=== PATIENT | female | born 1965 | race Asian ===

== ENCOUNTER 2018-08-11 12:31 | Day surgery (SDC) | payer OTHER, SELFPAY ==
[2018-08-11 13:00] VITALS: BP 101/69; PULSE 73; RESP 20; TEMP 36.7; O2SAT 98; BMI 31.1
[2018-08-11] MEDS: SODIUM CHLORIDE 0.9% 1,000 ML 100 ML IV (13:02)
--- NOTE | 2018-08-11 15:02 | PM.HP.1 ---
History of Present Illness Date Patient Seen: 08/11/18 Time Patient Seen: 15:02 Chief complaint: 36143 Colonoscopy Narrative: Wonderful 53-year-old lady here for a screening colonoscopy. She denies ever having had a colonoscopy before. She denies any new problems or symptoms related to the function of her GI tract. She reports she needs a colonoscopy as per the health maintenance program. Patient History Social History household members: spouse Family & Social History Social History: household members spouse Meds Home Medications Medication Instructions Recorded Confirmed Type calcium carbonate [Calcium 500] 1,000 mg PO QAM 08/11/18 08/11/18 History cholecalciferol (vitamin D3) 2,000 unit PO DAILY 08/11/18 08/11/18 History [Vitamin D3] folic acid 1 mg PO DAILY 08/11/18 08/11/18 History methotrexate sodium 5 mg PO QWEEK 08/11/18 08/11/18 History Allergies Allergy/AdvReac Type Severity Reaction Status Date / Time No Known Drug Allergies Allergy Verified 08/11/18 13:03 Review of Systems Review of Systems All systems reviewed & are unremarkable except as noted in HPI and below Exam Vital Signs (past 8 hours): - 08/11/18 13:00 Temperature 98.1 F Pulse Rate 73 Respiratory Rate 20 Blood Pressure 101/69 Pulse Oximetry 98 Oxygen Delivery Method Room Air Narrative Exam Narrative: Very pleasant lady in no obvious distress HEENT: Normocephalic atraumatic, pupils equal round reactive to light accommodation with anicteric sclera Lungs: Clear to auscultation bilaterally Heart: Regular rate and rhythm Abdomen: Soft, nontender, active bowel sounds Extremities: Warm well perfused Assessment & Plan Assessment & Plan narrative: Very pleasant lady with a new diagnosis of diabetes on metformin. She presents today for her 1st screening colonoscopy. We discussed the risks and benefits of the procedure and she has expressed a desire to complete it today.
[2018-08-11] MEDS: fentaNYL 250 MCG/5 ML INJ IV (15:23)
[2018-08-11] MEDS: MIDAZOLAM 5 MG/5 ML VIAL IV (15:24)
--- NOTE | 2018-08-11 15:26 | PM.OP.1 ---
Operative Date/Time/Diagnoses Date of procedure: 08/11/18 Time of procedure: 15:26 Pre-op diagnosis: Screening Post-op diagnosis: same Procedure & Clinicians Procedure: Colonoscopy to the cecum Same procedure as scheduled: Yes Indications: No prior colonoscopy Surgeon: Martina Molina Anesthesia Type: Sedation (Versed 5 mg; fentanyl 200 micro g) Operative Notes Findings: 1. Excellent prep 2. No polyps or mass lesions 3. No AV malformations 4. Very minimal diverticulosis with just a couple of very small pockets in the sigmoid region 5. Grade 1 internal hemorrhoids Closure Type: not applicable Specimen(s): none sent Procedure in detail: After obtaining informed consent, the patient was brought to the GI suite and placed in the left lateral decubitus position on the examination table. After placement of appropriate monitors, the patient was given incremental doses of Versed and Fentanyl until an appropriate level of sedation was achieved. A time out was held per SCOAP protocol. A digital rectal examination was performed and did not reveal any masses or obstructing lesions. The colonoscope was gently passed into the patient's anus and the entire colon navigated to the level of the cecum with minimal difficulty. Once in the cecum, the scope was withdrawn being sure to go before and beyond all mucosal folds and prominences and get an excellent examination. The findings are noted above. At the level of the rectal vault, the scope was retroflexed and the internal anal canal was examined. The scope was straightened and air aspirated from the colon. The instrument was removed from the patient's body and the procedure was concluded. The patient was allowed to awaken from sedation without difficulty and taken to the post-anesthesia care unit in good condition. Total sedation time was 23 minutes Total withdrawal time was 12 minutes Complications: none Condition: stable Disposition: PACU Plan for aftercare: 1. Discharge to home 2. Plan for next colonoscopy in 10 years or as clinically indicated
[2018-08-11 15:30] VITALS: BP 94/57; PULSE 79; RESP 13; TEMP 36.5; O2SAT 96
[2018-08-11 15:35] VITALS: BP 97/59; PULSE 77; RESP 14; O2SAT 96
[2018-08-11 15:40] VITALS: BP 98/58; PULSE 72; RESP 14; O2SAT 96
[2018-08-11 15:45] VITALS: BP 101/58; PULSE 71; RESP 12; O2SAT 96
[2018-08-11 15:55] VITALS: BP 100/65; PULSE 60; RESP 18; TEMP 36.7; O2SAT 98
== END 2018-08-11 16:15 | disposition home or self-care (01) ==
PROVIDERS: PCP General Practice; Visit Provider Surgery
PROC: 0DJD8ZZ Inspection of Lower Intestinal Tract, Via Natural or Artificial Opening Endoscopic (ICD-10-PCS; CPT 45378; principal; 2018-08-11 14:00)
DX: Z12.11 Encounter for screening for malignant neoplasm of colon (principal); K57.30 Diverticulosis of large intestine without perforation or abscess without bleeding; K64.0 First degree hemorrhoids; E11.9 Type 2 diabetes mellitus without complications; Z79.84 Long term (current) use of oral hypoglycemic drugs
CPT/HCPCS: 45378; 99152; J2250; J3010

== ENCOUNTER → 2019-07-09 13:12 | Outpatient (CLI) | payer OTHER, SELFPAY | PROVIDERS: PCP General Practice; Referring Provider Internal Medicine Rheumatology; Visit Provider Internal Medicine Rheumatology | DX: M85.851 Other specified disorders of bone density and structure, right thigh (principal); Z78.0 Asymptomatic menopausal state; E07.9 Disorder of thyroid, unspecified; M05.79 Rheumatoid arthritis with rheumatoid factor of multiple sites without organ or systems involvement; M54.5 Low back pain; Z79.899 Other long term (current) drug therapy | CPT/HCPCS: 77080 ==

== ENCOUNTER → 2020-09-04 10:12 | Outpatient (CLI) | payer OTHER, SELFPAY | PROVIDERS: PCP General Practice; Referring Provider Internal Medicine Rheumatology; Visit Provider Internal Medicine Rheumatology | DX: M85.851 Other specified disorders of bone density and structure, right thigh (principal); E07.9 Disorder of thyroid, unspecified; M06.9 Rheumatoid arthritis, unspecified; Z78.0 Asymptomatic menopausal state | CPT/HCPCS: 77080 ==

== ENCOUNTER → 2023-11-24 10:48 | Outpatient (CLI) | payer OTHER, SELFPAY ==
--- NOTE | 2023-11-24 | DI.RAD.S_ITS ---
PROCEDURE: XR DEXA AXIAL SKELETON INDICATIONS: Other specified disorders of bone density and structure, uns COMPARISON: [facility], , XR DEXA AXIAL SKELETON, 09/04/2020, 10:33. [facility], CR, XR DEXA AXIAL SKELETON, 07/09/2019, 13:39. FINDINGS: Lumbar Spine: Bone mineral density 0.853 g/cm2, T score -1.8, previously -1.4. Left Hip: Bone mineral density 0.684 g/cm2, T score -2.1, previously -1.7. Left Femoral Neck: Bone mineral density 0.609 g/cm2, T score [place] 2.2, previously -1.9. Right Hip: Bone mineral density 0.701 g/cm2, T score -2, previously -1.7. Right Femoral Neck: Bone mineral density 0.6-0 g/cm2, T score -2.1, previously -1.9. Fracture Risk Calculation (when applicable): 10-year fracture risk of a major osteoporotic fracture 6.3% and of a hip fracture 1.0%. (T score greater or equal to -1.0 to: NORMAL) (T score from -1.1 to -2.4: OSTEOPENIA) (T score less than or equal to -2.5: OSTEOPOROSIS) IMPRESSION: Osteopenia. Follow-up guidelines as follows: Osteoporosis: Consider a repeat DEXA and Vertebral Fracture Assessment (VFA) exam in 2 years or sooner if medically necessary, to reassess this patient's status. Osteopenia: Consider a repeat DEXA in 2-3 years to reassess this patient's status, or if there is a new clinical indication. Normal: Consider a repeat DEXA in 5 years or sooner, or if there is a new clinical indication. All treatment decisions require clinical judgment and consideration of individual patient factors, including patient preferences, comorbidities, previous drug use, risk factors not captured in the FRAX model (e.g., frailty, falls, vitamin D deficiency, increased bone turnover, interval significant decline in bone density ) and possible under- or over-estimation of fracture risk by FRAX. In addition, the NOF Guide recommends that FDA-approved medical therapies be considered in postmenopausal women and men age >= 50 years with a: * Hip or vertebral (clinical or morphometric) fracture * T-score of <=-2.5 at the spine or hip * Ten-year fracture probability by FRAX of >= 3% for hip fracture or >=20% for major osteoporotic fracture. People with diagnosed cases of osteoporosis or at high risk for fracture should have regular bone mineral density tests. For patients eligible for Medicare, routine testing is allowed once every 2 years. The testing frequency can be increased to one year for patients who have rapidly progressing disease, those who are receiving or discontinuing medical therapy to restore bone mass, or have additional risk factors. Dictated by: Chuck Benitez M.D. on 11/24/2023 at 14:03 Approved by: Chuck Benitez M.D. on 11/24/2023 at 14:04
== END ==
PROVIDERS: PCP Nurse Practitioner Family; Referring Provider Nurse Practitioner Family; Visit Provider Nurse Practitioner Family
DX: M85.89 Other specified disorders of bone density and structure, multiple sites (principal)
CPT/HCPCS: 77080